=== PATIENT | male | born 1965 | race Caucasian/White ===

== ENCOUNTER 2016-10-28 20:42 | Inpatient (IN) | payer BC ==
[~2016-10-28] VITALS: Ht 172.7 cm; Wt 83.2 kg
--- NOTE | 2016-10-28 23:03 | ED CLINICAL REPORT ---
Clinical Report - Physicians/Mid Levels [facility] [address] [place] [address] 10/28/2016 20:48 Patient: MELINA MCKEON Time Seen: 2104; upon arrival, initial patient contact, initial documentation, patient care assumed. Arrived- By private vehicle. Historian- patient. HISTORY OF PRESENT ILLNESS Chief Complaint: LOWER EXTREMITY PAIN and SWELLING. Flexion, movement to the right and left and not relieved by anything- worsened by standing, walking and flexion, movement to the right and left and not relieved by anything. Severity is described as being severe. The quality is noted to be "pain". No radiation. This started about 1 weeks ago and is still present and worsening. Symptoms located in the area of the left thigh, left knee, left leg, left foot and left ankle. The patient has had redness and swelling. He has had difficulty walking. No bladder dysfunction, bowel dysfunction, sensory loss or motor loss. Patient denies an injury. Similar symptoms previously: None. Recent medical care: Not recently seen/assessed. REVIEW OF SYSTEMS No chest pain, difficulty breathing, fever or skin rash. All systems otherwise negative, except as recorded above. PAST HISTORY See nurses notes. ( PROBLEMS: Hypertension. --20:56 Raymundo Judge, Luis.). SOCIAL HISTORY Former smoker. History of heavy drug use: methamphetamines. No alcohol use. No recent travel. Is a local resident. FAMILY HISTORY Negative. ADDITIONAL NOTES The nursing notes have been reviewed with agreement regarding the chief complaint, HPI, ROS, PMH and patient medications and allergies. PHYSICAL EXAM Vital Signs: 10/28/2016 20:55 BP: 179/99. HR: 101. RR: 18. O2 saturation: 99%. Temp: 98.6 F. Have been reviewed as abnormal and appear to be correct. Hypertensive. Tachycardic. Respiratory rate normal. Temperature normal. Oxygen saturation normal. Appearance: Alert. Oriented X3. No acute distress. Eyes: Pupils equal, round and reactive to light. Eyes normal inspection. Neck: Normal inspection. Neck supple. CVS: Normal heart rate and rhythm. Heart sounds normal. Respiratory: No respiratory distress. Breath sounds normal. Abdomen: Soft and nontender. No organomegaly. Back: Normal inspection. No tenderness. ROM normal. Skin: Skin intact. Skin warm and dry. Normal skin color. Normal skin turgor. Extremities: Lower extremities do not exhibit normal ROM. Lower extremity edema present. (entire L leg erythema, warm, swollen, only area not red was patella). Extremities otherwise negative. Gait: Abnormal gait. Gait not tested due to pain. Neuro: Oriented X 3. No motor deficit. No sensory deficit. LABS, X-RAYS, AND EKG Lower Extremity Sonography: Negative study. verbal report from [employer] musa, no dvt. Interpretation time: 22:45. Laboratory Tests: CBC w Diff: (LOW: 10/28/2016 21:14) ( MsgRcvd 10/28/2016 21:29) Final results Test Result Flag Units (Reference) WHITE BLOOD COUNT 6.9 K/uL (4.5-11.5) RED BLOOD COUNT 4.64 M/uL (4.50-5.90) HEMOGLOBIN 14.1 gm/dL (13.5-17.5) HEMATOCRIT 41.4 % (41.0-53.0) MEAN CELL VOLUME 89 fL (80-100) MEAN CORPUSCULAR HGB 30 pg (26-34) MEAN CORPUSCULAR HGB CONC 34 g/dL (31-37) RED CELL DISTRIBUTION WIDTH 14.7 % (11.6-14.8) PLATELET COUNT 325 K/uL (150-400) NEUTROPHIL % 59.9 % (50-75) LYMPH % 23.3 L % (25-40) MONO % 6.9 % (3-14) EOSINOPHIL % 8.3 H % (0-4) BASOPHIL % 1.6 % (0-2) CMP: (LOW: 10/28/2016 21:14) ( MsgRcvd 10/28/2016 21:42) Final results Test Result Flag Units (Reference) GLUCOSE 89 mg/dL (70-110) BUN 11 mg/dL (7-18) CREATININE 1.0 mg/dL (0.6-1.3) Estimated GFR >60 mL/min Estimated GFR- >60 mL/min Note: Persistent reduction over 3 months in eGFR<60 mL/min/1.73 m2 defines CKD. Patients with eGFR values>=60 mL/min/1.73 m2 may also have CKD if evidence ofpersistent proteinuria. Additional information may be foundat www.kidney.org. SODIUM 140 mmol/L (136-145) POTASSIUM 4.2 mmol/L (3.5-5.1) CHLORIDE 103 mmol/L (98-107) CARBON DIOXIDE 32 mmol/L (21-32) CALCIUM 8.6 mg/dL (8.5-10.1) TOTAL PROTEIN 8.4 H g/dL (6.4-8.2) ALBUMIN 3.6 g/dL (3.3-5.0) BILIRUBIN, TOTAL 0.3 mg/dL (0.0-1.0) ALKALINE PHOSPHATASE 121 H U/L (46-116) AST (SGOT) 35 U/L (15-37) ALT (SGPT) 32 U/L (12-78) . PROGRESS AND PROCEDURES Course of Care: 22:40 10/28/16. US here. Discussed case with on-call health care provider, (23:[address] Paz). Reviewed test results. Agreed upon treatment plan and decision to admit. Health care provider will see patient in hospital. Patient counseled in person regarding the patient's stable condition, test results, diagnosis and need for admission. 2250. Differential Diagnosis: Other possible considerations: dvt, cellulitis, abscess, lymphedema, substance abuse. Above considerations are based on history, physical exam and laboratory data. Differential diagnosis was discussed with patient. Disposition: Admitted to Acute Care. 23:01. Condition: good and stable. CLINICAL IMPRESSION Cellulitis of the left thigh, left lower leg, left ankle and left foot. No foreign body present. (Electronically signed by Tammy Lund A.R.N.P. 10/30/2016 13:03)
--- NOTE | 2016-10-28 23:03 | ED ORDER SUMMARY ---
..... Patient: MELINA MCKEON OrderSheet [facility] VisitID: [id number] [address] [place] [address] 51y, M Registration Date/Time: 10/28/2016 ORDER SHEET Weight: 90.7 kg (stated) Allergies: NKDA GENERAL ORDERS: US Venous Left Urgent (21:17 10/28/2016 HBivens A.R.N.P.) (Ack 21:20 [facility]) (23:11 [place]) CBC w Diff Urgent (21:17 10/28/2016 HBivens A.R.N.P.) ([facility]ck 21:[facility] CMP Urgent (21:17 10/28/2016 HBivens A.R.N.P.) (Ack 21:20 [facility] Lactate, Serum Urgent (22:46 10/28/2016 HBivens A.R.N.P.) (Ack 23:03 [facility]) PCT (Procalcitonin) Urgent (22:46 10/28/2016 HBivens A.R.N.P.) (Ack 23:03 [facility]) Blood Culture (No) (N/A) Urgent (23:10 10/28/2016 HBivens A.R.N.P.) (Ack 23:19 [facility]) MEDICATION ORDERS: IV FLUIDS: IV Saline Lock (21:17 10/28/2016 HBivens A.R.N.P.) (21:20 DBeyer R.N.) Vancomycin IV 1 gm/200mL (NOW) (22:46 10/28/2016 HBivens A.R.N.P.) (23:42 DBeyer R.N.) ORDER SHEET NOTES: [Electronically signed by Raymundo Judge R.N. (00:44 10/29/2016)] [Electronically signed by Tammy Lund.R.N.P. (13:03 10/30/2016)] [Electronically locked/signed by Raymundo Judge R.N. (00:44 10/29/2016)]
--- NOTE | 2016-10-28 23:03 | ED NURSING NOTES ---
Clinical Report - Nurses [facility] [address] [place] [place] [address] 10/28/2016 20:48 Patient: MELINA MCKEON TRIAGE Triage time 20:55 Oct 28 2016. Acuity: LEVEL 3. Chief Complaint: SKIN PROBLEM and . leg swelling. --20:58 Raymundo Judge R.N. 20:55 10/28/16. BP: 179/99. HR: 101. RR: 18. O2 saturation: 99%. Temp: 98.6 F. Pain level now 8/10. --20:58 Raymundo Jduge R.N. Weight: 90.7 kg stated. Height/Length: 68 inches. BMI: 30.4. --20:57 Raymundo Judge R.N. Medications None. --20:56 Raymundo Judge R.N. Allergies NKDA. --20:56 Raymundo Judge R.N. History Arrived by private vehicle. Onset. (1 weeks). 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 SOCIAL HX: Former smoker. History of drug use: methamphetamines. No alcohol use. --20:58 Raymundo Judge R.N. PROBLEMS: Hypertension. --20:56 Raymundo Judge R.N. Interventions ID band on patient. To treatment room. --20:58 Raymundo Judge R.N. PHYSICAL ASSESSMENT GENERAL / NEURO / PSYCH: Alert. The patient does not appear to be in acute distress. Oriented X 4. HEENT: Pupils equal, round and reactive to light. Mucous membranes are pink. SKIN: Skin is dry. Skin tenderness present- LLE. Swelling present- LLE. Increased warmth present- LLE. --20:59 Raymundo Judge R.N. NURSING PROGRESS NOTES Pulse oximeter placed on patient. Patient gowned. --20:59 Raymundo Judge R.N. Call light placed in reach. Side rails up x 1. Bed placed in lowest position. --20:59 Raymundo Judge R.N. 21:20 10/28/2016 Site #1 started via IV in the right antecubital space with an 20g angiocath, with aseptic technique and good blood return; one attempt. Blood drawn: rainbow set. Labeled in the presence of the patient and sent to the lab. Saline lock flushed with saline. --21:20 Raymundo Judge R.N. 23:02 10/28/16. BP: 156/91. HR: 85. O2 saturation: 97%. --23:03 Raymundo Judge R.N. 23:42 10/28/2016 Started 1 gm of Vancomycin IVPB in bag #1 200 mL; at 200 mL/hr over 1 hour(s) via site #1 via IV pump. Allergies verified and confirmed 5 rights. IV patency established. IV site checked: no pain, redness, or swelling. IV flushed thoroughly pre- and post-medication administration. --23:42 Raymundo Judge R.N. DISPOSITION / DISCHARGE No learning barriers present. Report was given to a nurse via a phone call. Report included patient's care, treatment, medications, reviewed medication reconcilliation, and condition (including any recent changes or anticipated changes). All questions were answered. Report was acknowledged. Patient's personal items include: shirt, pants, socks and shoes, 00:27 Oct 29 2016; items were given to the patient and transported with the patient. --00:27 Raymundo Judge R.N. 00:32 10/29/16. BP: 160/90. HR: 91. RR: 18. O2 saturation: 100%. Temp: 98.8 F. Pain level now 0/10. --00:33 Raymundo Judge R.N. Departure time: 0033. --00:33 Ryamundo Judge R.N. Locked/Released at 10/29/2016 0:44 by Raymundo Judge R.N.
--- NOTE | 2016-10-28 23:03 | ED ORDER SUMMARY ---
..... Patient: MELINA MCKEON OrderSheet [facility] VisitID: [id number] [address] [place] [address] 51y, M Registration Date/Time: 10/28/2016 ORDER SHEET Weight: 90.7 kg (stated) Allergies: NKDA GENERAL ORDERS: US Venous Left Urgent (21:17 10/28/2016 HBivens A.R.N.P.) (Ack 21:20 [facility]) (23:11 [facility]) CBC w Diff Urgent (21:17 10/28/2016 HBivens A.R.N.P.) ([facility]ck 21:[facility] CMP Urgent (21:17 10/28/2016 HBivens A.R.N.P.) (Ack 21:20 [facility] Lactate, Serum Urgent (22:46 10/28/2016 HBivens A.R.N.P.) (Ack 23:03 [facility]) PCT (Procalcitonin) Urgent (22:46 10/28/2016 HBivens A.R.N.P.) (Ack 23:03 [facility]) Blood Culture (No) (N/A) Urgent (23:10 10/28/2016 HBivens A.R.N.P.) (Ack 23:19 [facility]) MEDICATION ORDERS: IV FLUIDS: IV Saline Lock (21:17 10/28/2016 HBivens A.R.N.P.) (21:20 DBeyer R.N.) Vancomycin IV 1 gm/200mL (NOW) (22:46 10/28/2016 HBivens A.R.N.P.) (23:42 DBeyer R.N.) ORDER SHEET NOTES: [Electronically signed by Raymundo Judge R.N. (00:44 10/29/2016)] [Electronically signed by Tammy Lund.R.N.P. (13:03 10/30/2016)] [Electronically locked/signed by Raymundo Judge R.N. (00:44 10/29/2016)]
--- NOTE | 2016-10-28 23:03 | ED NURSING NOTES ---
Clinical Report - Nurses [facility] [address] [place] [address] 10/28/2016 20:48 Patient: MELINA MCKEON TRIAGE Triage time 20:55 Oct 28 2016. Acuity: LEVEL 3. Chief Complaint: SKIN PROBLEM and . leg swelling. --20:58 Raymundo Judge R.N. 20:55 10/28/16. BP: 179/99. HR: 101. RR: 18. O2 saturation: 99%. Temp: 98.6 F. Pain level now 8/10. --20:58 Raymundo Judge R.N. Weight: 90.7 kg stated. Height/Length: 68 inches. BMI: 30.4. --20:57 Raymundo Judge R.N. Medications None. --20:56 Raymundo Judge R.N. Allergies NKDA. --20:56 Raymundo Judge R.N. History Arrived by private vehicle. Onset. (1 weeks). 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 SOCIAL HX: Former smoker. History of drug use: methamphetamines. No alcohol use. --20:58 Raymundo Judge R.N. PROBLEMS: Hypertension. --20:56 Raymundo Judge R.N. Interventions ID band on patient. To treatment room. --20:58 Raymundo Judge R.N. PHYSICAL ASSESSMENT GENERAL / NEURO / PSYCH: Alert. The patient does not appear to be in acute distress. Oriented X 4. HEENT: Pupils equal, round and reactive to light. Mucous membranes are pink. SKIN: Skin is dry. Skin tenderness present- LLE. Swelling present- LLE. Increased warmth present- LLE. --20:59 Raymundo Judge R.N. NURSING PROGRESS NOTES Pulse oximeter placed on patient. Patient gowned. --20:59 Raymundo Judge R.N. Call light placed in reach. Side rails up x 1. Bed placed in lowest position. --20:59 Raymundo Judge R.N. 21:20 10/28/2016 Site #1 started via IV in the right antecubital space with an 20g angiocath, with aseptic technique and good blood return; one attempt. Blood drawn: rainbow set. Labeled in the presence of the patient and sent to the lab. Saline lock flushed with saline. --21:20 Raymundo Judge R.N. 23:02 10/28/16. BP: 156/91. HR: 85. O2 saturation: 97%. --23:03 Raymundo Judge R.N. 23:42 10/28/2016 Started 1 gm of Vancomycin IVPB in bag #1 200 mL; at 200 mL/hr over 1 hour(s) via site #1 via IV pump. Allergies verified and confirmed 5 rights. IV patency established. IV site checked: no pain, redness, or swelling. IV flushed thoroughly pre- and post-medication administration. --23:42 Raymundo Judge R.N. DISPOSITION / DISCHARGE No learning barriers present. Report was given to a nurse via a phone call. Report included patient's care, treatment, medications, reviewed medication reconcilliation, and condition (including any recent changes or anticipated changes). All questions were answered. Report was acknowledged. Patient's personal items include: shirt, pants, socks and shoes, 00:27 Oct 29 2016; items were given to the patient and transported with the patient. --00:27 Raymundo Judge R.N. 00:32 10/29/16. BP: 160/90. HR: 91. RR: 18. O2 saturation: 100%. Temp: 98.8 F. Pain level now 0/10. --00:33 Raymundo Judge R.N. Departure time: 0033. --00:33 Raymundo Judge R.N. Locked/Released at 10/29/2016 0:44 by Raymundo Judge R.N.
--- NOTE | 2016-10-28 23:35 | DIAGNOSTIC IMAGING REPORT ---
PROCEDURE: US VENOUS - LEFT EXT INDICATION: Left lower extremity edema and pain, initial encounter TECHNIQUE: Duplex sonography of the deep venous system in the left lower extremity was performed. Compression and augmentation techniques were used. COMPARISON: None. FINDINGS: Normal compression of the greater saphenous, common femoral, superficial femoral, popliteal, peroneal, and posterior tibial veins. Normal augmentation. There is no evidence of superficial or deep venous thrombosis. 3 cm left inguinal lymph node. IMPRESSION: 1. No evidence of a left lower extremity DVT 2. Left inguinal adenopathy
[2016-10-29 00:40] VITALS: BP 164/70
--- NOTE | 2016-10-29 01:20 | DIAGNOSTIC IMAGING REPORT ---
PROCEDURE: XR CHEST 1 VIEW INDICATION: Coarse lung sounds and rhonchi TECHNIQUE: Portable AP view (0105 hours). COMPARISON: Compared to chest x-ray on 09/23/2013 and 06/06/2010. FINDINGS: Allowing for suboptimal inspiration, lungs are clear. Heart and mediastinum are normal. Thorax is normal. IMPRESSION: 1. Negative chest.
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
[2016-10-29 07:13] VITALS: BP 174/95
--- NOTE | 2016-10-29 08:32 | Progress Note ---
Subjective General Note Date: October 29, 2016 Admission Date: October 28, 2016 Hospital Day: 2 PCP: Emmy Blanco PA-C Status: Inpatient Advanced Directive: FULL CODE Room: 209-B Subjective: The patient left AMA prior to being seen Patient requests: None Medications and Allergies Medications Current Medications Sig/Nieves Start time Last Medication Dose Route Stop Time Status Admin Clarify Med Order See Dose 1630 10/30 1530 AC Insts (1) IV Docusate Sodium 250 MG BID PRN 10/29 09 AC PO Enoxaparin Sodium 40 MG DAILY 10/29 09 AC SC Vancomycin HCl/ 200 ML Q8H 10/29 0800 AC Dextrose IV Ibuprofen 600 MG Q6H PRN 10/29 0400 AC PO Ketorolac 30 MG Q6H PRN 10/29 0400 AC 10/29 Tromethamine IV 0414 Acetaminophen See Dose Q4H PRN 10/29 0130 AC Insts (2) PO Clotrimazole See Dose BID 10/29 0130 AC 10/29 Insts (3) TOP 0315 Naloxone HCl 0.4 MG PRN PRN 10/29 0130 AC IV Ondansetron HCl 4 MG Q6H PRN 10/29 0130 AC PO Ondansetron HCl 4 MG Q6H PRN 10/29 0130 AC IV Albuterol Sulfate 2.5 MG Q4H PRN 10/29 0100 AC IN Albuterol/Ipratropium 3 ML Q6H PRN 10/29 0100 AC IN Dose Instructions: (1)Clarify Med Order: VANCOMYCIN TROUGH (2)Acetaminophen: 325 - 650 MG (3)Clotrimazole: APPLY TO AFFECTED AREA Allergies Coded Allergies: No Known Drug Allergy (05/21/10) Physical Exam Vital Signs / I&Os Vital Signs Date Time Temp Pulse Resp B/P Pulse O2 O2 Flow FiO2 Ox Delivery Rate 10/29 0713 98.6 90 16 174/95 96 Room Air 0.0 10/29 004 98.2 99 16 164/70 95 Room Air 0.0 LAB Results Laboratory Tests 10/28 10/28 10/28 8355 8350 2114 Chemistry Plasma Sodium (136 - 145 mmol/L) 140 Plasma Potassium (3.5 - 5.1 mmol/L) 4.2 Plasma Chloride (98 - 107 mmol/L) 103 CO2 (Enzymatic) (21 - 32 mmol/L) 32 BUN (7 - 18 mg/dL) 11 Creatinine (0.6 - 1.3 mg/dL) 1.0 Est GFR ( Amer) (mL/min) >60 Est GFR (Non-Af Amer) (mL/min) >60 Glucose (70 - 110 mg/dL) 89 Lactic Acid (0.4 - 2.0 mmol/L) 0.6 Plasma Calcium (8.5 - 10.1 mg/dL) 8.6 Plasma Magnesium (1.8 - 2.4 mg/dL) 2.5 Total Bilirubin (0.0 - 1.0 mg/dL) 0.3 AST (15 - 37 U/L) 35 ALT (12 - 78 U/L) 32 Alkaline Phosphatase (46 - 116 U/L) 121 Total Protein (6.4 - 8.2 g/dL) 8.4 Albumin (3.3 - 5.0 g/dL) 3.6 Procalcitonin (0 - 0.5 ng/mL) <0.5 Hematology WBC (4.5 - 11.5 K/uL) 6.9 RBC (4.50 - 5.90 M/uL) 4.64 Hgb (13.5 - 17.5 gm/dL) 14.1 Hct (41.0 - 53.0 %) 41.4 MCV (80 - 100 fL) 89 MCH (26 - 34 pg) 30 RDW (11.6 - 14.8 %) 14.7 Neut % (Auto) (50 - 75 %) 59.9 Lymph % (Auto) (25 - 40 %) 23.3 [place] % (Auto) (3 - 14 %) 6.9 Eos % (Auto) (0 - 4 %) 8.3 Baso % (Auto) (0 - 2 %) 1.6 Plt Count, EDTA (150 - 400 K/uL) 325 PUBS MCHC (31 - 37 g/dL) 34 Microbiology Date/Time Procedure - Status Source Growth 10/28 2335 Blood Culture - RECD BLOOD Assessment and Plan Problem List 1. Cellulitis of lower extremity Plan Patient left AMA prior to being seen Current status: [current status] Anticipated discharge date: [discharge date] Anticipated discharge placement: [Home] Patient care time: Time spent in chart review, patient interview, physical exam, CPOE, and care documentation: [ ] minutes Visit to patient today: [ ] Complexity of care: [ ] E&M Codes Rounding: Inpt-Moderate/03645
--- NOTE | 2016-10-30 13:20 | ED MED RECONCILIATION SUMMARY ---
Patient: MELINA MCKEON Medication Reconciliation Report [facility] VisitID: [id number] [address] [place] [address] 51y, M Registration Date/Time: 10/28/2016 Weight: 90.7 kg Height/Length: 68 in. BMI: 30.4 ALLERGIES: NKDA The patient's Home Medications are listed below: NONE. The source(s) of the original Home Medication information: Not obtained. The following Medications were given to the patient in the Emergency Department: Vancomycin [IVPB] IVPB bolus 0, then 1 gm 200 mL/hr, administered: 10/28/2016 11:42:00 PM The following Medications were prescribed to the patient: None.
--- NOTE | 2016-10-30 13:20 | ED MAR SUMMARY ---
..... Medication Administration Record [facility] [address] [place] [address] Patient: MELINA MCKEON Visit ID: [id number] 51y, M Weight: 90.7 kg Height/Length: 68 in BMI: 30.4 ALLERGIES: NKDA Start 23:42 10/28/2016 Raymundo Judge R.N. Medication Administered: VANCOMYCIN [IVPB], Dose: 1 gm IVPB over 1 hour(s), Rate: 200 mL/hr, Dispensed: 200 mL bag, Site: #1 right AC. Medication Ordered: Vancomycin IV 1 gm/200mL (NOW).
--- NOTE | 2016-10-30 13:20 | ED DISCHARGE INSTRUCTIONS ---
Patient: MELINA MCKEON General Instructions [facility] VisitID: [id number] [address] [place] [address] 51y, M Registration Date/Time: 10/28/2016 Cellulitis of the left thigh, left lower leg, left ankle and left foot. No foreign body present. (Electronically signed by Tammy Lund A.R.N.P. 10/30/2016 13:03)
--- NOTE | 2016-10-30 13:20 | ED MED RECONCILIATION SUMMARY ---
Patient: MELINA MCKEON Medication Reconciliation Report [facility] VisitID: [id number] [address] [place] [address] 51y, M Registration Date/Time: 10/28/2016 Weight: 90.7 kg Height/Length: 68 in. BMI: 30.4 ALLERGIES: NKDA The patient's Home Medications are listed below: NONE. The source(s) of the original Home Medication information: Not obtained. The following Medications were given to the patient in the Emergency Department: Vancomycin [IVPB] IVPB bolus 0, then 1 gm 200 mL/hr, administered: 10/28/2016 11:42:00 PM The following Medications were prescribed to the patient: None.
--- NOTE | 2016-10-30 13:20 | ED DISCHARGE INSTRUCTIONS ---
Patient: MELINA MCKEON General Instructions [facility] VisitID: [id number] [address] [place] [address] 51y, M Registration Date/Time: 10/28/2016 Cellulitis of the left thigh, left lower leg, left ankle and left foot. No foreign body present. (Electronically signed by Tammy Lund A.R.N.P. 10/30/2016 13:03)
--- NOTE | 2016-10-30 13:20 | ED MAR SUMMARY ---
..... Medication Administration Record [facility] [address] [place] [address] Patient: MELINA MCKEON Visit ID: [id number] 51y, M Weight: 90.7 kg Height/Length: 68 in BMI: 30.4 ALLERGIES: NKDA Start 23:42 10/28/2016 Raymundo Judge R.N. Medication Administered: VANCOMYCIN [IVPB], Dose: 1 gm IVPB over 1 hour(s), Rate: 200 mL/hr, Dispensed: 200 mL bag, Site: #1 right AC. Medication Ordered: Vancomycin IV 1 gm/200mL (NOW).
== END 2016-10-29 08:55 | disposition left against medical advice (07) | DRG 603 ==
LOC: ED SRH 20:42 → ACUTE2 SRH 23:14 → TRANS SRH 23:14 → ACUTE2 SRH 10-29 00:41
PROVIDERS: ADMIT Family Medicine
DX: L03.116 Cellulitis of left lower limb (principal); F10.21 Alcohol dependence, in remission; Z87.891 Personal history of nicotine dependence

== ENCOUNTER 2016-10-29 21:58 | Inpatient (IN) | payer BC ==
[~2016-10-29] VITALS: Ht 172.7 cm; Wt 80.5 kg
--- NOTE | 2016-10-29 23:27 | ED ORDER SUMMARY ---
..... Patient: MELINA MCKEON OrderSheet [facility] VisitID: [id number] [address] [place] [address] 51y, M Registration Date/Time: 10/29/2016 ORDER SHEET Weight: 95.2 kg (stated) Allergies: No Known Drug Allergy GENERAL ORDERS: CBC w Diff Urgent (22:23 10/29/2016 Rom DUGGAN) (22:42 JDeElena R.N.) CMP Urgent (22:10/29/2016 Rom DUGGAN) (22:42 JDeElena R.N.) UA-Culture if indicated Urgent (22:10/29/2016 Rom DUGGAN) (Ack 22:46 Sofia HAYDEN Watch Assembler) (23:01 JQuivey R.N.) Amylase Urgent (22:10/29/2016 Rom DUGGAN) (22:42 JDeElena R.N.) Lipase Urgent (22:10/29/2016 Rom DUGGAN) (22:42 JDeElena R.N.) Blood Culture (No) (N/A) Urgent (22:24 10/29/2016 Rom DUGGAN) (22:42 JDeElena R.N.) Lactate, Serum Urgent (22:24 10/29/2016 Rom DUGGAN) (22:42 JDeElena R.N.) MEDICATION ORDERS: IV FLUIDS: IV Saline Lock (22:23 10/29/2016 Rom DUGGAN) (Ack 22:30 JDeElena R.N.) (22:43 JDeElena R.N.) Vancomycin IV 1 gm/200mL (NOW) (23:27 10/29/2016 Rom DUGGAN) (Ack 23:30 JQuivey R.N.) (23:42 JQuivey R.N.) ORDER SHEET NOTES: [Electronically signed by Tommy Mix R.N. (01:10/30/2016)] [Electronically signed by Pedro Patino MD (07:48 10/31/2016)] [Electronically locked/signed by Tommy Mix R.N. (:10/30/2016)]
--- NOTE | 2016-10-29 23:27 | ED NURSING NOTES ---
Clinical Report - Nurses [facility] [address] [place] [address] 10/29/2016 21:58 Patient: MELINA MCKEON TRIAGE Triage time 22:11. Acuity: LEVEL 3. Chief Complaint: LEFT LOWER EXTREMITY PAIN, SWELLING and REDNESS. 22:18. Alert. SEPSIS SCREEN: Sepsis Screen: negative. Infection suspected/documented. --22:18 Tommy Mix R.N. 22:11 10/29/16. BP: 172/96. HR: 104. RR: 16. O2 saturation: 99%. Temp: 98.1 F (oral). Pain level now: 12/18. --22:18 Tommy Mix R.N. Weight: 95.2 kg stated. Height/Length: 68 inches Per Patient. BMI: 31.9. --22:16 Tommy Mix R.N. Medications None. --22:15 Tommy Mix R.N. Medication/allergy information source: the patient. --22:18 Tommy Mix R.N. Allergies No Known Drug Allergy. --22:15 Tommy Mix R.N. History Arrived by private vehicle. Historian: patient. Unaccompanied. Primary physician (Francis). No injury occurred. This occurred (1 weeks ago). ( Patient reports the leg is better, wants to have it checked). 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 PAST MEDICAL HX: Tetanus status: up-to-date. Immunizations: up-to-date. SOCIAL HX: Former smoker, end date 2010. No alcohol use or drug use. No infectious disease exposure. ABUSE ASSESSMENT: No report of abuse. FALL RISK ASSESSMENT: Fall risk assessment completed. No fall risk identified. NUTRITIONAL RISK ASSESSMENT: The nutritional risk assessment revealed no deficiencies. FUNCTIONAL ASSESSMENT: Functional assessment: no impairments noted. LEARNING NEEDS ASSESSMENT: The learning needs assessment revealed no barriers. SKIN INTEGRITY ASSESSMENT: Skin integrity risk assessment completed. No skin integrity risk identified. --22:18 Tommy Mix R.N. ( Patient reports leaving AMA after being admitted). --22:19 Tommy Mix R.N. PROBLEMS: Cellulitis. Drug Poisoning. Substance Abuse. Hypertension. --22:17 Tommy Mix R.N. ADDITIONAL SURGERIES: Left Arm fx repair . Right collarr bone fx repair. Right leg fracture repair . --22:17 Tommy Mix R.N. Interventions ID band on patient. To treatment room. --22:18 Tommy Mix R.N. PHYSICAL ASSESSMENT 22:14. Ambulatory to room. Patient gowned. GENERAL / NEURO / PSYCH: Oriented X 4. Alert. EXTREMITIES: Neuro-vascular status intact to the extremity. Left thigh: swelling and erythema. Left leg: swelling and erythema. Left ankle: swelling and erythema. SKIN: Skin intact. Skin is warm and dry. --22:37 Tommy Mix R.N. NURSING PROGRESS NOTES 22:15. Two patient identifiers checked. Call light placed in reach. Bed placed in lowest position. Brakes of bed on. --22:37 Tommy Mix R.N. 22:43 10/29/2016 Site #1 started via IV in the right forearm with an 20g angiocath, with aseptic technique and good blood return; one attempt. Blood drawn: rainbow set and cultures x2. Labeled in the presence of the patient and sent to the lab. Saline lock flushed with 10 mL saline (2nd set of BC drawn (1st set yesterday). Pt has received a vancomycin dose yesterday in the ER. Lab notified.). --22:43 Hiram Snow R.N. 23:00. Patient ID band checked for patient name and birthdate: patient confirmed. Clean catch urine collected with return of radhika-colored clear urine; sample sent to lab for urinalysis. Specimen labeled in the presence of the patient. --23:01 Tommy Mix R.N. 23:42 10/29/2016 Started 1 gm of Vancomycin IVPB in bag #1 250 mL; at 250 mL/hr over 1 hour(s) via site #1 via IV pump. Allergies verified and confirmed 5 rights. IV patency established. IV site checked: no pain, redness, or swelling. IV flushed thoroughly pre- and post-medication administration. --23:42 Tommy Mix R.N. 23:42 10/29/16. BP: 160/84. HR: 92. RR: 15. O2 saturation: 96% on room air. Pain level now: 12/18. --23:43 Tommy Mix R.N. The patient is calm and resting quietly. GENERAL / NEURO / PSYCH: Alert. Oriented X 4. RESPIRATORY: No respiratory distress. SKIN: Skin is warm and dry. --23:43 Tommy Mix R.N. 00:31 10/30/2016 Vancomycin IVPB Continued: upon admission at the rate of 250 mL/hr. 50 mL remaining bag #1. IV patency established. IV site checked: no pain, redness, or swelling. IV flushed thoroughly. --00:36 Tommy Mix R.N. DISPOSITION / DISCHARGE Condition at departure: stable. No learning barriers present. Admitted to Acute Care. Patient's personal items include, Other belongings; items were placed in belongings bag and transported with the patient. He did not have glasses, contacts, dentures or a hearing aid. FALL RISK ASSESSMENT: Fall risk assessment completed. No fall risk identified. --00:22 Tommy Mix R.N. 00:21 10/30/16. BP: 138/76. HR: 94. RR: 15. O2 saturation: 99%. Pain level now: 12/18. --00:22 Tommy Mix R.N. Report was given via a phone call. Report included patient's care, treatment, medications, reviewed medication reconcilliation, and condition (including any recent changes or anticipated changes). All questions were answered. Report was acknowledged. (Swathi Baezaday care assistant). --00:27 Tommy Mix R.N. Departure time: 00:34. --00:35 Tommy Mix R.N. Locked/Released at 10/30/2016 1:11 by Tommy Mix R.N.
--- NOTE | 2016-10-29 23:27 | ED CLINICAL REPORT ---
Clinical Report - Physicians/Mid Levels [facility] [address] [place] [address] 10/29/2016 21:58 Patient: MELINA MCKEON Time Seen: 22:23. Arrived- By private vehicle. Historian- patient. HISTORY OF PRESENT ILLNESS Chief Complaint: LOWER EXTREMITY PAIN. Severity is described as being .it has become recently worse. The quality is noted to be aching and "pain". This started about 8 days ago and is still present and now worse. It was gradual in onset and has been constant. Symptoms located in the area of the left thigh, left leg and left foot. The patient has had redness and swelling. No sensory loss or motor loss. ( The patient was seen here yesterday and was diagnosed with left lower extremity cellulitis. He was admitted to the hospital and apparently received 2 doses of vancomycin total however he signed out AGAINST MEDICAL ADVICE. He returns now saying that the swelling and redness has worsened and he would like to be readmitted). Patient denies an injury. Recent medical care: The patient was seen recently at this facility. REVIEW OF SYSTEMS No chills, fever, sweats, chest pain or cough. No difficulty breathing, pedal edema, palpitations, abdominal pain or constipation. No diarrhea, nausea or vomiting. he reports that he had a left lower extremity venous Doppler done yesterday and that the study was negative for blood clots. All systems otherwise negative, except as recorded above. PAST HISTORY Problems: Cellulitis. Drug Poisoning. Substance Abuse. Hypertension. Additional Surgeries: Left Arm fx repair . Right collarr bone fx repair. Right leg fracture repair . Medications: None. Allergies: No Known Drug Allergy. SOCIAL HISTORY Smoker- current status unknown. History of drug use: methamphetamines. No alcohol use. FAMILY HISTORY Denies family medical history. ADDITIONAL NOTES The nursing notes have been reviewed. PHYSICAL EXAM Vital Signs: 10/29/2016 22:11 BP: 172/96. HR: 104. RR: 16. O2 saturation: 99%. Temp: 98.1 F. Pain level now: 410. Have been reviewed. Appearance: Alert. Eyes: Pupils equal, round and reactive to light. ENT: Pharynx normal. Neck: Neck supple. CVS: Normal heart rate and rhythm. Heart sounds normal. Respiratory: No respiratory distress. Breath sounds normal. Abdomen: Soft and nontender. No organomegaly. Back: Normal inspection. Extremities: Left thigh. Left leg. Left foot: severe erythema and moderate tenderness and swelling. Swelling, warmth, tenderness and erythema present in the left thigh, left leg and left foot. No drainage. No calf tenderness. LABS, X-RAYS, AND EKG Laboratory Tests: UA-Culture if indicated: (LOW: 10/29/2016 23:00) ( Mscvd 10/29/2016 23:13) Final results Test Result Flag Units (Reference) URINE COLOR YELLOW URINE APPEARANCE CLEAR URINE GLUCOSE NEGATIVE (NEGATIVE) URINE BILIRUBIN NEGATIVE (NEGATIVE) URINE KETONE NEGATIVE (NEGATIVE) URINE SPECIFIC GRAVITY >= 1.030 (1.010-1.030) URINE PH 5.5 (5.0-8.0) URINE PROTEIN NEGATIVE (NEGATIVE) URINE UROBILINOGEN 1.0 EU/dL (0.2-1.0) URINE NITRITE NEGATIVE (NEGATIVE) URINE BLOOD 2+ (NEGATIVE) URINE LEUK ESTERASE NEGATIVE (NEGATIVE) URINE RBC 3-5 rbc/hpf (0-1) URINE WBC 0-1 wbc/hpf (0-1) URINE EPITHELIAL CELLS 0-1 EPI/hpf (0-5) URINE BACTERIA NONE SEEN (NONE SEEN) URINE COMMENT CULT NOT INDICATED URINE CULTURES ARE SET-UP BASED ON THE FOLLOWING CRITERIA:POSITIVE NITRITEPOSITIVE LEUKOCYTE ESTERASEGREATER THAN 10 WHITE BLOOD CELLSMODERATE (2+) OR GREATER BACTERIA CBC w Diff: (LOW: 10/29/2016 22:24) ( [facility] [place] 22[facility]55) Final results Test Result Flag Units (Reference) WHITE BLOOD COUNT 6.8 K/uL (4.5-11.5) RED BLOOD COUNT 4.14 L M/uL (4.50-5.90) HEMOGLOBIN 12.1 L gm/dL (13.5-17.5) HEMATOCRIT 36.8 L % (41.0-53.0) MEAN CELL VOLUME 89 fL (80-100) MEAN CORPUSCULAR HGB 29 pg (26-34) MEAN CORPUSCULAR HGB CONC 33 g/dL (31-37) RED CELL DISTRIBUTION WIDTH 14.0 % (11.6-14.8) PLATELET COUNT 321 K/uL (150-400) LYMPH % 30.6 % (25-40) MONO % 6.2 % (3-14) GRANULOCYTE % 63.2 Lactate, Serum: (LOW: 10/29/2016 22:24) ( MsgRcvd 10/29/2016 23:19) Final results Test Result Flag Units (Reference) LACTIC ACID 1.4 mmol/L (0.4-2.0) CMP: (LOW: 10/29/2016 22:24) ( MsgRcvd 10/29/2016 23:13) Final results Test Result Flag Units (Reference) GLUCOSE 92 mg/dL (70-110) BUN 15 mg/dL (7-18) CREATININE 1.1 mg/dL (0.6-1.3) Estimated GFR >60 mL/min Estimated GFR- >60 mL/min Note: Persistent reduction over 3 months in eGFR<60 mL/min/1.73 m2 defines CKD. Patients with eGFR values>=60 mL/min/1.73 m2 may also have CKD if evidence ofpersistent proteinuria. Additional information may be foundat www.kidney.org. SODIUM 140 mmol/L (136-145) POTASSIUM 3.7 mmol/L (3.5-5.1) CHLORIDE 103 mmol/L (98-107) CARBON DIOXIDE 29 mmol/L (21-32) CALCIUM 8.2 L mg/dL (8.5-10.1) TOTAL PROTEIN 8.2 g/dL (6.4-8.2) ALBUMIN 3.2 L g/dL (3.3-5.0) BILIRUBIN, TOTAL 0.3 mg/dL (0.0-1.0) ALKALINE PHOSPHATASE 110 U/L (46-116) AST (SGOT) 29 U/L (15-37) ALT (SGPT) 26 U/L (12-78) LIPASE 61 L U/L (73-393) AMYLASE 32 U/L (25-115) . PROGRESS AND PROCEDURES Discussed case with hospitalist, (Megan - he saw the patient in the ER). Reviewed test results and need for additional work-up. Agreed upon treatment plan and decision to admit. Patient/family counseled. Old medical records reviewed. Disposition: Admitted. CLINICAL IMPRESSION Cellulitis of the left thigh and left lower leg. (Electronically signed by Pedro Patino MD 10/31/2016 7:48)
--- NOTE | 2016-10-29 23:27 | ED NURSING NOTES ---
Clinical Report - Nurses [facility] [address] [place] [address] 10/29/2016 21:58 Patient: MELINA MCKEON TRIAGE Triage time 22:11. Acuity: LEVEL 3. Chief Complaint: LEFT LOWER EXTREMITY PAIN, SWELLING and REDNESS. 22:18. Alert. SEPSIS SCREEN: Sepsis Screen: negative. Infection suspected/documented. --22:18 Tommy Mix R.N. 22:11 10/29/16. BP: 172/96. HR: 104. RR: 16. O2 saturation: 99%. Temp: 98.1 F (oral). Pain level now: 12/18. --22:18 Tommy Mix R.N. Weight: 95.2 kg stated. Height/Length: 68 inches Per Patient. BMI: 31.9. --22:16 Tommy Mix R.N. Medications None. --22:15 Tommy Mix R.N. Medication/allergy information source: the patient. --22:18 Tommy Mix R.N. Allergies No Known Drug Allergy. --22:15 Tommy Mix R.N. History Arrived by private vehicle. Historian: patient. Unaccompanied. Primary physician (Francis). No injury occurred. This occurred (1 weeks ago). ( Patient reports the leg is better, wants to have it checked). 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 PAST MEDICAL HX: Tetanus status: up-to-date. Immunizations: up-to-date. SOCIAL HX: Former smoker, end date 2010. No alcohol use or drug use. No infectious disease exposure. ABUSE ASSESSMENT: No report of abuse. FALL RISK ASSESSMENT: Fall risk assessment completed. No fall risk identified. NUTRITIONAL RISK ASSESSMENT: The nutritional risk assessment revealed no deficiencies. FUNCTIONAL ASSESSMENT: Functional assessment: no impairments noted. LEARNING NEEDS ASSESSMENT: The learning needs assessment revealed no barriers. SKIN INTEGRITY ASSESSMENT: Skin integrity risk assessment completed. No skin integrity risk identified. --22:18 Tommy Mix R.N. ( Patient reports leaving AMA after being admitted). --22:19 Tommy Mix R.N. PROBLEMS: Cellulitis. Drug Poisoning. Substance Abuse. Hypertension. --22:17 Tommy Mix R.N. ADDITIONAL SURGERIES: Left Arm fx repair . Right collarr bone fx repair. Right leg fracture repair . --22:17 Tommy Mix R.N. Interventions ID band on patient. To treatment room. --22:18 Tommy Mix R.N. PHYSICAL ASSESSMENT 22:14. Ambulatory to room. Patient gowned. GENERAL / NEURO / PSYCH: Oriented X 4. Alert. EXTREMITIES: Neuro-vascular status intact to the extremity. Left thigh: swelling and erythema. Left leg: swelling and erythema. Left ankle: swelling and erythema. SKIN: Skin intact. Skin is warm and dry. --22:37 Tommy Mix R.N. NURSING PROGRESS NOTES 22:15. Two patient identifiers checked. Call light placed in reach. Bed placed in lowest position. Brakes of bed on. --22:37 Tommy Mix R.N. 22:43 10/29/2016 Site #1 started via IV in the right forearm with an 20g angiocath, with aseptic technique and good blood return; one attempt. Blood drawn: rainbow set and cultures x2. Labeled in the presence of the patient and sent to the lab. Saline lock flushed with 10 mL saline (2nd set of BC drawn (1st set yesterday). Pt has received a vancomycin dose yesterday in the ER. Lab notified.). --22:43 Hiram Snow R.N. 23:00. Patient ID band checked for patient name and birthdate: patient confirmed. Clean catch urine collected with return of radhika-colored clear urine; sample sent to lab for urinalysis. Specimen labeled in the presence of the patient. --23:01 Tommy Mix R.N. 23:42 10/29/2016 Started 1 gm of Vancomycin IVPB in bag #1 250 mL; at 250 mL/hr over 1 hour(s) via site #1 via IV pump. Allergies verified and confirmed 5 rights. IV patency established. IV site checked: no pain, redness, or swelling. IV flushed thoroughly pre- and post-medication administration. --23:42 Tommy Mix R.N. 23:42 10/29/16. BP: 160/84. HR: 92. RR: 15. O2 saturation: 96% on room air. Pain level now: 12/18. --23:43 Tommy Mix R.N. The patient is calm and resting quietly. GENERAL / NEURO / PSYCH: Alert. Oriented X 4. RESPIRATORY: No respiratory distress. SKIN: Skin is warm and dry. --23:43 Tommy Mix R.N. 00:31 10/30/2016 Vancomycin IVPB Continued: upon admission at the rate of 250 mL/hr. 50 mL remaining bag #1. IV patency established. IV site checked: no pain, redness, or swelling. IV flushed thoroughly. --00:36 Tommy Mix R.N. DISPOSITION / DISCHARGE Condition at departure: stable. No learning barriers present. Admitted to Acute Care. Patient's personal items include, Other belongings; items were placed in belongings bag and transported with the patient. He did not have glasses, contacts, dentures or a hearing aid. FALL RISK ASSESSMENT: Fall risk assessment completed. No fall risk identified. --00:22 Tommy Mix R.N. 00:21 10/30/16. BP: 138/76. HR: 94. RR: 15. O2 saturation: 99%. Pain level now: 12/18. --00:22 Tommy Mix R.N. Report was given via a phone call. Report included patient's care, treatment, medications, reviewed medication reconcilliation, and condition (including any recent changes or anticipated changes). All questions were answered. Report was acknowledged. (Swathi Baezachronic care nurse). --00:27 Tommy Mix R.N. Departure time: 00:34. --00:35 Tommy Mix R.N. Locked/Released at 10/30/2016 1:11 by Tommy Mix R.N.
--- NOTE | 2016-10-29 23:27 | ED ORDER SUMMARY ---
..... Patient: MELINA MCKEON OrderSheet [facility] VisitID: [id number] [address] [place] [address] 51y, M Registration Date/Time: 10/29/2016 ORDER SHEET Weight: 95.2 kg (stated) Allergies: No Known Drug Allergy GENERAL ORDERS: CBC w Diff Urgent (22:23 10/29/2016 Rom DUGGAN) (22:42 JDeElena R.N.) CMP Urgent (22:10/29/2016 Rom DUGGAN) (22:42 JDeElena R.N.) UA-Culture if indicated Urgent (22:10/29/2016 Rom DUGGAN) (Ack 22:46 Sofia HAYDEN Nursing Department Chairperson) (23:01 JQuivey R.N.) Amylase Urgent (22:10/29/2016 Rom DUGGAN) (22:42 JDeElena R.N.) Lipase Urgent (22:10/29/2016 Rom DUGGAN) (22:42 JDeElena R.N.) Blood Culture (No) (N/A) Urgent (22:24 10/29/2016 Rom DUGGAN) (22:42 JDeElena R.N.) Lactate, Serum Urgent (22:24 10/29/2016 Rom DUGGAN) (22:42 JDeElena R.N.) MEDICATION ORDERS: IV FLUIDS: IV Saline Lock (22:23 10/29/2016 Rom DUGGAN) (Ack 22:30 JDeElena R.N.) (22:43 JDeElena R.N.) Vancomycin IV 1 gm/200mL (NOW) (23:27 10/29/2016 Rom DUGGAN) (Ack 23:30 JQuivey R.N.) (23:42 JQuivey R.N.) ORDER SHEET NOTES: [Electronically signed by Tommy Mix R.N. (01:10/30/2016)] [Electronically signed by Pedro Patino MD (07:48 10/31/2016)] [Electronically locked/signed by Tommy Mix R.N. (:10/30/2016)]
[2016-10-30 00:47] VITALS: BP 147/88
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
--- NOTE | 2016-10-30 05:12 | NUR ---
Pt arrived to floor around 0100 via stretcher. Ambulated to room bed well. Pt left AMA this morning without apparent cause and returned this evening stating "stupid mistake". Spoke with PT about this and Pt divulged being heroin user of 3/4 gram daily, previously denied to all care takers. Injects in both deltoids. Denies injecting in affected leg. VSS, pain 4/10, IV fluids running and well tolerated. Pt states being a heavy drinker in the past and switched to heroin. Call light directions given, bed low and locked. Pt has slept all shift thus far. Wakes during medical assistant per diem but falls back asleep quickly. L leg is slightly swollen with erythema throughout, warm to touch but Pt tolerates assessment well. WCTM.
[2016-10-30 06:38] VITALS: BP 139/87
--- NOTE | 2016-10-30 08:44 | NUR ---
Pharmacy to dose Vancomycin for cellulitis. Total of 2 gm given overnight, last 1 gm at 0300. Calculate 1500 mg IV q12hrs for trough ~13. Pharmacy will follow. mary
--- NOTE | 2016-10-30 09:10 | NUR ---
PATIENT AMBULATORY IN ROOM. PULLED IV OUT WHILE GETTING TO BATHROOM INDEPENDENTLY. PATIENT SIGNED BEHAVIORAL AGREEMENT WITH THIS RN. BELONGINGS SECURED IN CLOSET WITH ZIP TIE. SEE SHIFT ASSESSMENT FOR FURTHER DETAILS.
[2016-10-30 09:43] VITALS: BP 138/76
[2016-10-30 14:30] VITALS: BP 155/93
--- NOTE | 2016-10-30 17:27 | Progress Note ---
Subjective General Note Date: October 30, 2016 Admission Date: October 29, 2016 Hospital Day: 2 Status: Inpatient Advanced Directive: FULL CODE Room: 201 Brief History: The patient is a 51-year-old white male with a significant past mental history of opiate dependence-heroin who presented to [facility] emergency department on the day of admission secondary to complaints of left lower leg swelling, redness, and pain. [facility] ER evaluation was consistent with cellulitis involving left leg. Secondary to the above, the patient was admitted by Jarrell Guzman M.D. for further evaluation and treatment. For other history present illness, past medical history, family history, social history, review of systems, and admission physical examination please see the patient's history and physical examination and ER visit note in the patient's medical record. Subjective: The patient states the leg redness has improved. There is persistent swelling but this has improved also. Pain is adequately controlled. Patient requests: None other than medications for narcotic withdrawal Medications and Allergies Medications Current Medications Sig/Nieves Start time Last Medication Dose Route Stop Time Status Admin Clarify Med Order See Dose 1230 10/31 1230 AC Insts (1) IV 10/31 1231 Celecoxib 200 MG BID 10/30 1500 AC 10/30 PO 1549 Methadone HCl 20 MG Q8HR 10/30 1500 AC 10/30 PO 1549 Vancomycin HCl 1,500 MG Q12H 10/30 1300 AC 10/30 Sodium Chloride 500 ML IV 1317 Clotrimazole See Dose BID 10/30 0900 AC 10/30 Insts (2) TOP 0857 Enoxaparin Sodium 40 MG DAILY 10/30 0900 AC 10/30 SC 0857 Lisinopril 10 MG DAILY 10/30 0900 AC 10/30 PO 0857 Albuterol/Ipratropium 3 ML RTTID 10/30 0800 AC 10/30 IN 1537 Ceftriaxone Sodium/ 50 ML Q24H 10/30 0200 AC 10/30 Dextrose IV 0300 Hydromorphone HCl 1 MG Q2H PRN 10/30 0200 AC IV Sodium Chloride 1,000 ML ASDIRECTED 10/29 2345 AC 10/30 IV 0108 Dose Instructions: (1)Clarify Med Order: VANCOMYCIN TROUGH (2)Clotrimazole: APPLY TO AFFECTED AREA--feet, chivo soles and between toes. Allergies Coded Allergies: No Known Drug Allergy (05/21/10) Physical Exam Vital Signs / I&Os Vital Signs Date Time Temp Pulse Resp B/P Pulse O2 O2 Flow FiO2 Ox Delivery Rate 10/30 1551 95 10/30 1430 98.1 92 17 155/93 100 Room Air 10/30 0943 99.0 94 18 138/76 96 Room Air 10/30 0929 95 10/30 0638 98.8 80 18 139/87 95 Room Air 10/30 0047 98.1 88 20 147/88 95 Room Air General Appearance Alert, Oriented X3, Cooperative, No acute distress Lungs Clear to auscultation Cardiovascular Regular rate and rhythm, Normal S1 and S2 Abdomen Normal bowel sounds, Soft Extremities No cyanosis, No clubbing, Left leg shows diffuse edema with mild erythema which appears much improved since admission Neurological Grossly normal Psych/Mental Status Mental status normal, Mood normal LAB Results Laboratory Tests 10/29 10/29 10/29 2300 2224 2224 Chemistry Plasma Sodium (136 - 145 mmol/L) 140 Plasma Potassium (3.5 - 5.1 mmol/L) 3.7 Plasma Chloride (98 - 107 mmol/L) 103 CO2 (Enzymatic) (21 - 32 mmol/L) 29 BUN (7 - 18 mg/dL) 15 Creatinine (0.6 - 1.3 mg/dL) 1.1 Est GFR ( Amer) (mL/min) >60 Est GFR (Non-Af Amer) (mL/min) >60 Glucose (70 - 110 mg/dL) 92 Lactic Acid (0.4 - 2.0 mmol/L) 1.4 Plasma Calcium (8.5 - 10.1 mg/dL) 8.2 Total Bilirubin (0.0 - 1.0 mg/dL) 0.3 AST (15 - 37 U/L) 29 ALT (12 - 78 U/L) 26 Alkaline Phosphatase (46 - 116 U/L) 110 Total Protein (6.4 - 8.2 g/dL) 8.2 Albumin (3.3 - 5.0 g/dL) 3.2 Amylase (25 - 115 U/L) 32 Lipase (73 - 393 U/L) 61 Hematology WBC (4.5 - 11.5 K/uL) 6.8 RBC (4.50 - 5.90 M/uL) 4.14 Hgb (13.5 - 17.5 gm/dL) 12.1 Hct (41.0 - 53.0 %) 36.8 MCV (80 - 100 fL) 89 MCH (26 - 34 pg) 29 RDW (11.6 - 14.8 %) 14.0 Gran % 63.2 Lymph % (Auto) (25 - 40 %) 30.6 [place] % (Auto) (3 - 14 %) 6.2 Plt Count, EDTA (150 - 400 K/uL) 321 PUBS MCHC (31 - 37 g/dL) 33 Urines Urine Color YELLOW Urine Appearance CLEAR Urine pH (5.0 - 8.0) 5.5 Ur Specific [place] (1.010 - 1.030) >= 1.030 Urine Protein (NEGATIVE) NEGATIVE Urine Ketones (NEGATIVE) NEGATIVE Urine Blood (NEGATIVE) 2+ Urine Nitrite (NEGATIVE) NEGATIVE Urine Bilirubin (NEGATIVE) NEGATIVE Urine Urobilinogen (0.2 - 1.0 EU/dL) 1.0 Ur Leukocyte Esterase (NEGATIVE) NEGATIVE Urine RBC (0 - 1 rbc/hpf) 3-5 Urine WBC (0 - 1 wbc/hpf) 0-1 Ur Epithelial Cells (0 - 5 EPI/hpf) 0-1 Urine Bacteria (NONE SEEN) NONE SEEN Urine Glucose (NEGATIVE) NEGATIVE Urine Comment CULT NOT INDICATED Microbiology Date/Time Procedure - Status Source Growth 10/30 219 Blood Culture - RECD BLOOD 10/29 2223 Blood Culture - RECD BLOOD Assessment and Plan Problem List 1. Illicit drug use Status Chronic Onset Date Unknown Plan -Patient with history of illicit drug use-heroin -1 g per day -Begin methadone 20 mg by mouth 3 times a day -Initiated enrollment [facility] -Patient wishes to enroll in drug treatment program post discharge 2. Cellulitis of lower extremity Plan -Status improved -Continue vancomycin -Recheck CBC, CRP, ESR in a.m. -Consider switch to oral medications in a.m. if continued improvement Current status: Fair, improved Anticipated discharge date: Anticipated discharge in 1-2 days with improved status Anticipated discharge placement: Home Patient care time: Time spent in chart review, patient interview, physical exam, CPOE, and care documentation: 25 minutes Visit to patient today: 1 Complexity of care: Moderate E&M Codes Rounding: Inpt-Moderate/87021
--- NOTE | 2016-10-30 18:17 | NUR ---
PATIENT IS ALERT AND ORIENTED, HE HAS NO C/O N/V OR SOB. NO C/O CHEST PAIN. LUNG SOUNDS CLEAR, VSS, BOWEL TONES PRESENT ALL QUARDRANTS. BEEN MONITORING LEGS FOR FURTHER INCREASE S/S OF INFECTION. LEFT LEG IS A LITTLE SWOLLEN, PATIENT COMPLAINS OF PAIN IN LEFT LEG ONLY, IT IS RED ON LOWER HALF. PEDAL PULSES PRESNET, CAP REFILL LESS THAN 3 SEC ON ALL EXTREMITIES. HAS SENSATION IN ALL EXTREMITIES. NO OTHER COMPLAINTS RIGHT NOW. PT RESTING IN BED WATCHING T.V.
[2016-10-30 18:34] VITALS: BP 157/78
--- NOTE | 2016-10-30 20:23 | NUR ---
NOTIFIED DR. PARISH REGARDING PATIENTS CRITICAL LAB VALUES.
--- NOTE | 2016-10-30 20:24 | NUR ---
GETTING LOVONOX INJECTION TO HELP PREVENT DVTS WHILE IN HOSPITAL.
[2016-10-30 22:33] VITALS: BP 144/84
[2016-10-31 02:37] VITALS: BP 137/84
--- NOTE | 2016-10-31 05:18 | NUR ---
Pt. is resting in bed at this time. Denies pain throughout the night. L leg is sl. more swollen than R leg. Pt. using urinal to void. IV fluids and abx. infused without issue. Pt. is cooperative and pleasant. LA NENATM.
[2016-10-31 06:53] VITALS: BP 122/77
--- NOTE | 2016-10-31 06:59 | Progress Note ---
Subjective General Note Date: October 31, 2016 Admission Date: October 29, 2016 Hospital Day: 3 PCP: None Status: Inpatient Advanced Directive: FULL CODE Room: 201 Brief History: The patient is a 51-year-old white male with a significant past mental history of opiate dependence-heroin who presented to [facility] emergency department on the day of admission secondary to complaints of left lower leg swelling, redness, and pain. [facility] ER evaluation was consistent with cellulitis involving left leg. Secondary to the above, the patient was admitted by Jarrell Guzman M.D. for further evaluation and treatment. For other history present illness, past medical history, family history, social history, review of systems, and admission physical examination please see the patient's history and physical examination and ER visit note in the patient's medical record. Subjective: Doing well. Ready for discharge Patient requests: None Medications and Allergies Medications Current Medications Sig/Nieves Start time Last Medication Dose Route Stop Time Status Admin Clarify Med Order See Dose 1230 10/31 1230 AC Insts (1) IV 10/31 1231 Celecoxib 200 MG BID 10/30 1500 AC 10/30 PO 2117 Methadone HCl 20 MG Q8HR 10/30 1500 AC 10/31 PO 0520 Vancomycin HCl 1,500 MG Q12H 10/30 1300 AC 10/31 Sodium Chloride 500 ML IV 0143 Clotrimazole See Dose BID 10/30 0900 AC 10/30 Insts (2) TOP 2111 Enoxaparin Sodium 40 MG DAILY 10/30 0900 AC 10/30 SC 0857 Lisinopril 10 MG DAILY 10/30 0900 AC 10/30 PO 0857 Albuterol/Ipratropium 3 ML RTTID 10/30 0800 AC 10/30 IN 2153 Ceftriaxone Sodium/ 50 ML Q24H 10/30 0200 AC 10/31 Dextrose IV 0359 Hydromorphone HCl 1 MG Q2H PRN 10/30 0200 AC IV Sodium Chloride 1,000 ML ASDIRECTED 10/29 2345 AC 10/30 IV 2053 Dose Instructions: (1)Clarify Med Order: VANCOMYCIN TROUGH (2)Clotrimazole: APPLY TO AFFECTED AREA--feet, chivo soles and between toes. Allergies Coded Allergies: No Known Drug Allergy (05/21/10) Physical Exam Vital Signs / I&Os Vital Signs Date Time Temp Pulse Resp B/P Pulse O2 O2 Flow FiO2 Ox Delivery Rate 10/31 0653 97.9 77 18 122/77 96 Room Air 10/31 0237 98.1 88 16 137/84 96 Room Air 10/30 2233 98.1 87 16 144/84 98 Room Air 10/30 1834 97.9 89 15 157/78 100 Room Air 10/30 1551 95 10/30 1430 98.1 92 17 155/93 100 Room Air 10/30 0943 99.0 94 18 138/76 96 Room Air 10/30 0929 95 I&O 10/31 0000 10/30 1600 10/30 0800 Intake Total 950 1980 Output Total 400 400 Balance 550 1980 -400 General Appearance Alert, Oriented X3, Cooperative, No acute distress Lungs Clear to auscultation Cardiovascular Regular rate and rhythm, Normal S1 and S2 Extremities No cyanosis, No clubbing, redness, swelling, pain much improved left lower leg. Neurological Grossly normal Psych/Mental Status Mental status normal, Mood normal LAB Results Laboratory Tests 10/31 0535 Chemistry C-Reactive Protein (0.0 - 0.9 mg/dL) 0.9 Hematology WBC (4.5 - 11.5 K/uL) 5.3 RBC (4.50 - 5.90 M/uL) 3.99 Hgb (13.5 - 17.5 gm/dL) 11.8 Hct (41.0 - 53.0 %) 35.4 MCV (80 - 100 fL) 89 MCH (26 - 34 pg) 30 RDW (11.6 - 14.8 %) 14.3 Neut % (Auto) (50 - 75 %) 38 Lymph % (Auto) (25 - 40 %) 38 [place] % (Auto) (3 - 14 %) 1 Eos % (Auto) (0 - 4 %) 9 Baso % (Auto) (0 - 2 %) 0 Band Neutrophils % (0 - 8 %) 14 Metamyelocytes % (0 - 1 %) 0 Myelocytes (0 - 1 %) 0 Other Cell Type 0 Plt Count, EDTA (150 - 400 K/uL) 290 Anisocytosis (manual) 1+ PUBS MCHC (31 - 37 g/dL) 33 Assessment and Plan Problem List 1. Cellulitis of lower extremity Plan -much improved -Discharged today -Bactrim DS 1 by mouth twice a day, clindamycin 300 mg by mouth 3 times a day -Follow up with PCP 2. HTN (hypertension) Status Chronic Onset Date Unknown Plan -well-controlled -Lisinopril 10 mg by mouth daily. 3. Illicit drug use Status Chronic Onset Date Unknown Plan -outpatient follow-up with [facility] -Methadone replacement therapy. Current status: Fair, improved Anticipated discharge date: Anticipated discharge this p.m. or in a.m. Anticipated discharge placement: Home Patient care time: Time spent in chart review, patient interview, physical exam, CPOE, and care documentation: Greater than 30 minutes Visit to patient today: 2 Complexity of care: Moderate E&M Codes Rounding: Inpt-Moderate/08346
--- NOTE | 2016-10-31 07:48 | ED MED RECONCILIATION SUMMARY ---
Patient: MELINA MCKEON Medication Reconciliation Report [facility] VisitID: [id number] [address] [place] [address] 51y, M Registration Date/Time: 10/29/2016 Weight: 95.2 kg Height/Length: 68 in. BMI: 31.9 ALLERGIES: No Known Drug Allergy The patient's Home Medications are listed below: NONE. The source(s) of the original Home Medication information: patient The following Medications were given to the patient in the Emergency Department: Vancomycin [IVPB] IVPB bolus 0, then 1 gm 250 mL/hr, administered: 10/29/2016 11:42:00 PM The following Medications were prescribed to the patient: None.
--- NOTE | 2016-10-31 07:48 | ED MED RECONCILIATION SUMMARY ---
Patient: MELINA MCKEON Medication Reconciliation Report [facility] VisitID: [id number] [address] [place] [address] 51y, M Registration Date/Time: 10/29/2016 Weight: 95.2 kg Height/Length: 68 in. BMI: 31.9 ALLERGIES: No Known Drug Allergy The patient's Home Medications are listed below: NONE. The source(s) of the original Home Medication information: patient The following Medications were given to the patient in the Emergency Department: Vancomycin [IVPB] IVPB bolus 0, then 1 gm 250 mL/hr, administered: 10/29/2016 11:42:00 PM The following Medications were prescribed to the patient: None.
--- NOTE | 2016-10-31 07:48 | ED MAR SUMMARY ---
..... Medication Administration Record [facility] [address] [place] [address] Patient: MELINA MCKEON Visit ID: [id number] 51y, M Weight: 95.2 kg Height/Length: 68 in BMI: 31.9 ALLERGIES: No Known Drug Allergy Start 23:42 10/29/2016 Tommy Mix RAdrienneN., Continued Upon Admission 00:31 10/30/2016 Tommy Mix R.N. Medication Administered: VANCOMYCIN [IVPB], Dose: 1 gm IVPB over 1 hour(s), Rate: 250 mL/hr, Dispensed: 250 mL bag, Site: #1 right forearm. Medication Ordered: Vancomycin IV 1 gm/200mL (NOW).
--- NOTE | 2016-10-31 07:48 | ED DISCHARGE INSTRUCTIONS ---
Patient: MELINA MCKEON General Instructions [facility] VisitID: [id number] [address] [place] [address] 51y, M Registration Date/Time: 10/29/2016 Cellulitis of the left thigh and left lower leg. (Electronically signed by Pedro Patino MD 10/31/2016 7:48)
--- NOTE | 2016-10-31 07:48 | ED MAR SUMMARY ---
..... Medication Administration Record [facility] [address] [place] [address] Patient: MELINA MCKEON Visit ID: [id number] 51y, M Weight: 95.2 kg Height/Length: 68 in BMI: 31.9 ALLERGIES: No Known Drug Allergy Start 23:42 10/29/2016 Tommy Mix RAdrienneN., Continued Upon Admission 00:31 10/30/2016 Tommy Mix R.N. Medication Administered: VANCOMYCIN [IVPB], Dose: 1 gm IVPB over 1 hour(s), Rate: 250 mL/hr, Dispensed: 250 mL bag, Site: #1 right forearm. Medication Ordered: Vancomycin IV 1 gm/200mL (NOW).
--- NOTE | 2016-10-31 07:48 | ED DISCHARGE INSTRUCTIONS ---
Patient: MELINA MCKEON General Instructions [facility] VisitID: [id number] [address] [place] [address] 51y, M Registration Date/Time: 10/29/2016 Cellulitis of the left thigh and left lower leg. (Electronically signed by Pedro Patino MD 10/31/2016 7:48)
--- NOTE | 2016-10-31 07:51 | NUR ---
PATIENT RESTING IN BED AND UP TO CHAIR FOR BREAKFAST. DENIES PAIN. IV INFUSING WNL. REDNESS DECREASING TO LLE. SEE SHIFT ASSESSMENT FOR FURTHER DETAILS.
--- NOTE | 2016-10-31 09:09 | NUR ---
PATIENT STATED IV CAME OUT THIS MORNING. HEMOSTASIS ACHIEVED AT SITE. NOTIFIED MD WHO STATED OK TO KEEP IV OUT FOR NOW.
[2016-10-31 10:36] VITALS: BP 132/86
[2016-10-31] MEDS ORDERED: METHADONE HCL10 MG PO (13:09)
[2016-10-31] MEDS ORDERED: MOTRIN IB200 MG PO (13:09)
[2016-10-31] MEDS ORDERED: LISINOPRIL10 MG PO (13:09)
--- NOTE | 2016-10-31 13:14 | Provider's Discharge Care Plan ---
Problem, Goal, Plan Problem List 1. Cellulitis of lower extremity Goals: Improve disease control, Prevent disease progress Instructions: Follow up as directed, Take meds as directed 2. Illicit drug use Goals: Improve disease control, Prevent disease progress Instructions: Follow up as directed, Take meds as directed, Enroll in treatment program with [facility]. 3. HTN (hypertension) Goals: Improve disease control, Prevent disease progress Instructions: Follow up as directed, Take meds as directed, Avoid processed foods, Low salt diet
[2016-10-31] MEDS ORDERED: CLINDAMYCIN HC300 MG PO (13:15)
[2016-10-31] MEDS ORDERED: BACTRIM DS1 TAB PO (13:15)
--- NOTE | 2016-10-31 13:18 | Discharge Summary ---
Discharge Summary Report Admit Date 10/29/16 Discharge Date 10/31/16 Admission Diagnosis 1. Cellulitis 2. Illicit drug use-heroin Discharge Diagnosis 1. Cellulitis 2. Illicit drug use-heroin Brief History The patient is a 51-year-old white male with a significant past mental history of opiate dependence-heroin who presented to [facility] emergency department on the day of admission secondary to complaints of left lower leg swelling, redness, and pain. [facility] ER evaluation was consistent with cellulitis involving left leg. Secondary to the above, the patient was admitted by Jarrell Guzman M.D. for further evaluation and treatment. For other history present illness, past medical history, family history, social history, review of systems, and admission physical examination please see the patient's history and physical examination and ER visit note in the patient's medical record. Hospital Course The following problems and their management were noted during the patient's hospitalization: 1. Cellulitis The patientWas admitted with findings of cellulitis left leg. This improved dramatically during the patient's hospital stay. He was afebrile. WBC within normal limits. Erythema and pain much improved. He was discharged on Bactrim DS 1 by mouth twice a day to complete a 10 day course of therapy. Outpatient follow-up with PCP 2. Illicit drug use-heroin The patient was treated with opiate replacement therapy with methadone. No significant withdrawal symptoms. The patient was enrolled in the methadone treatment program with the [facility]. He will follow-up with the [facility] for outpatient drug rehabilitation. General Appearance Alert, Oriented X3, Cooperative, No acute distress Lungs Clear to auscultation, Normal air movement Cardiovascular Regular Rate, Normal S1, Normal S2 Abdomen Normal bowel sounds, Soft, No tenderness Skin Cellulitis much improved. Minimal erythema left leg. No significant pain or warmth. Swelling stable. Neurological Grossly normal Psych/Mental Status Mental status NL, Mood NL Lab/Imaging Laboratory Tests 10/31 10/31 1230 0535 Chemistry C-Reactive Protein (0.0 - 0.9 mg/dL) 0.9 Hematology WBC (4.5 - 11.5 K/uL) 5.3 RBC (4.50 - 5.90 M/uL) 3.99 Hgb (13.5 - 17.5 gm/dL) 11.8 Hct (41.0 - 53.0 %) 35.4 MCV (80 - 100 fL) 89 MCH (26 - 34 pg) 30 RDW (11.6 - 14.8 %) 14.3 Neut % (Auto) (50 - 75 %) 38 Lymph % (Auto) (25 - 40 %) 38 [place] % (Auto) (3 - 14 %) 1 Eos % (Auto) (0 - 4 %) 9 Baso % (Auto) (0 - 2 %) 0 Band Neutrophils % (0 - 8 %) 14 Metamyelocytes % (0 - 1 %) 0 Myelocytes (0 - 1 %) 0 Other Cell Type 0 Plt Count, EDTA (150 - 400 K/uL) 290 Anisocytosis (manual) 1+ PUBS MCHC (31 - 37 g/dL) 33 Toxicology Vancomycin Trough Cancelled Discharge Instructions/Meds For other recommendations regarding discharge diet, activity, followup, and discharge medications please see the patient's discharge instructions. Discharge condition: Good, improved Greater than 30 min. was spent in the patient's discharge preparation including discharge interview and physical examination, progress note, discharge instructions, and discharge summary The patient was interviewed and examined on the day of discharge. E&M Codes Discharge: Inpt >30 min spent/[id number]
--- NOTE | 2016-10-31 13:18 | Discharge Summary ---
Discharge Summary Report Admit Date 10/29/16 Discharge Date 10/31/16 Admission Diagnosis 1. Cellulitis 2. Illicit drug use-heroin Discharge Diagnosis 1. Cellulitis 2. Illicit drug use-heroin Brief History The patient is a 51-year-old white male with a significant past mental history of opiate dependence-heroin who presented to [facility] emergency department on the day of admission secondary to complaints of left lower leg swelling, redness, and pain. [facility] ER evaluation was consistent with cellulitis involving left leg. Secondary to the above, the patient was admitted by Jarrell Guzman M.D. for further evaluation and treatment. For other history present illness, past medical history, family history, social history, review of systems, and admission physical examination please see the patient's history and physical examination and ER visit note in the patient's medical record. Hospital Course The following problems and their management were noted during the patient's hospitalization: 1. Cellulitis The patientWas admitted with findings of cellulitis left leg. This improved dramatically during the patient's hospital stay. He was afebrile. WBC within normal limits. Erythema and pain much improved. He was discharged on Bactrim DS 1 by mouth twice a day to complete a 10 day course of therapy. Outpatient follow-up with PCP 2. Illicit drug use-heroin The patient was treated with opiate replacement therapy with methadone. No significant withdrawal symptoms. The patient was enrolled in the methadone treatment program with the [facility]. He will follow-up with the [facility] for outpatient drug rehabilitation. General Appearance Alert, Oriented X3, Cooperative, No acute distress Lungs Clear to auscultation, Normal air movement Cardiovascular Regular Rate, Normal S1, Normal S2 Abdomen Normal bowel sounds, Soft, No tenderness Skin Cellulitis much improved. Minimal erythema left leg. No significant pain or warmth. Swelling stable. Neurological Grossly normal Psych/Mental Status Mental status NL, Mood NL Lab/Imaging Laboratory Tests 10/31 10/31 1230 0535 Chemistry C-Reactive Protein (0.0 - 0.9 mg/dL) 0.9 Hematology WBC (4.5 - 11.5 K/uL) 5.3 RBC (4.50 - 5.90 M/uL) 3.99 Hgb (13.5 - 17.5 gm/dL) 11.8 Hct (41.0 - 53.0 %) 35.4 MCV (80 - 100 fL) 89 MCH (26 - 34 pg) 30 RDW (11.6 - 14.8 %) 14.3 Neut % (Auto) (50 - 75 %) 38 Lymph % (Auto) (25 - 40 %) 38 [place] % (Auto) (3 - 14 %) 1 Eos % (Auto) (0 - 4 %) 9 Baso % (Auto) (0 - 2 %) 0 Band Neutrophils % (0 - 8 %) 14 Metamyelocytes % (0 - 1 %) 0 Myelocytes (0 - 1 %) 0 Other Cell Type 0 Plt Count, EDTA (150 - 400 K/uL) 290 Anisocytosis (manual) 1+ PUBS MCHC (31 - 37 g/dL) 33 Toxicology Vancomycin Trough Cancelled Discharge Instructions/Meds For other recommendations regarding discharge diet, activity, followup, and discharge medications please see the patient's discharge instructions. Discharge condition: Good, improved Greater than 30 min. was spent in the patient's discharge preparation including discharge interview and physical examination, progress note, discharge instructions, and discharge summary The patient was interviewed and examined on the day of discharge. E&M Codes Discharge: Inpt >30 min spent/[id number]
--- NOTE | 2016-10-31 15:17 | NUR ---
DC INSTRUCTIONS GIVEN TO PATIENT AND ALL QUESTIONS ANSWERED. PRESCRIPTIONS GIVEN TO PATIENT. PATIENT ESCORTED TO LOBBY BY THIS RN, PATIENT WOULD LIKE TO WAIT FOR RIDE THERE.
== END 2016-10-31 15:15 | disposition home or self-care (01) | DRG 603 ==
LOC: ED SRH 21:58 → ACUTE2 SRH 23:32 → TRANS SRH 23:32 → ACUTE2 SRH 10-30 00:34
PROVIDERS: ADMIT Family Medicine
DX: L03.116 Cellulitis of left lower limb (principal); F11.20 Opioid dependence, uncomplicated; I10 Essential (primary) hypertension

== ENCOUNTER 2016-12-13 01:31 | Emergency (ER) | payer BC ==
[~2016-12-13 01:31] MED LIST: BACTRIM DS1 TAB PO; CLINDAMYCIN HC300 MG PO; LISINOPRIL10 MG PO; METHADONE HCL10 MG PO; MOTRIN IB200 MG PO
--- NOTE | 2016-12-13 03:21 | ED ORDER SUMMARY ---
..... Patient: MELINA MCKEON OrderSheet [facility] VisitID: [id number] [place] [address] 51y, M Registration Date/Time: 12/13/2016 ORDER SHEET Weight: 90.7 kg (stated) Allergies: No Known Drug Allergy GENERAL ORDERS: CBC w Diff Urgent (02:28 12/13/2016 DDavis R.N. per protocol) (2:29 DDavis R.N.) CMP Urgent (02:12/13/2016 DDavis R.N. per protocol) (2:29 DDavis R.N.) UA-Culture if indicated Urgent (02:12/13/2016 DDavis R.N. per protocol) (2:29 DDavis R.N.) MEDICATION ORDERS: IV FLUIDS: IV Saline Lock (02:12/13/2016 DDavis R.N. per protocol) (2:28 DDavis R.N.) IV NS : initial bolus 1000 mL (1000 mL/hr), then none - (NOW) (02:32 12/13/2016 Kristen DUGGAN) (2:33 DDavis R.N.) Ondansetron IV 4 mg (NOW) (02:55 12/13/2016 DDavis R.N. verbal order read back to Kristen DUGGAN) (Ack 2:57 RCollier R.N.) (2:59 JQuivehope R.N.) ORDER SHEET NOTES: [Electronically signed by Alyx Keller R.N. (03:31 12/13/2016)] [Electronically signed by Sabrina Ha MD (19:00 12/22/2016)] [Electronically locked/signed by Alyx Keller R.N. (03:31 12/13/2016)]
--- NOTE | 2016-12-13 03:21 | ED NURSING NOTES ---
Clinical Report - Nurses [facility] [place] [address] 12/13/2016 1:30 Patient: MELINA MCKEON TRIAGE Triage time 01:42. Acuity: LEVEL 3. Chief Complaint: ABDOMINAL PAIN, NAUSEA and VOMITING. --01:48 Ray Oglesby R.N. 01:42 12/13/16. BP: 156/94. HR: 120. RR: 18. O2 saturation: 98% on room air. Temp: 98.9 F (oral). Pain level now: 0/10. Additional comments: intermittent abdominal pain. --01:48 Ray Oglesby R.N. Alert. --01:48 Ray Oglesby R.N. Weight: 90.7 kg stated. Height/Length: 68 inches Per Patient. BMI: 30.4. --01:43 Ray Oglesby R.N. Medications Ibuprofen Oral. --01:43 Ray Oglesby R.N. Lisinopril Oral. --01:43 Ray Oglesby R.N. Allergies No Known Drug Allergy. --01:43 Ray Oglesby R.N. History Arrived by private vehicle. Historian: patient. Unaccompanied. ( "a couple days" ago). SOCIAL HX: Former smoker. History of drug use: methamphetamines. ("30 days ago"). SELF HARM ASSESSMENT: A self harm assessment was performed. The patient answered "no" to the question "Have you recently felt down, depressed, or hopeless?", "Have you noticed less interest or pleasure in doing things?", "Do you have thoughts of harming or killing yourself?", "Are you here because you tried to hurt yourself?", "Have you ever tried to hurt yourself before today?" and "Have you recently had thoughts about harming or killing others?". FALL RISK ASSESSMENT: Fall risk assessment completed. No fall risk identified. FUNCTIONAL ASSESSMENT: Functional assessment: no impairments noted. LEARNING NEEDS ASSESSMENT: The learning needs assessment revealed no barriers. NUTRITIONAL RISK ASSESSMENT: The patient has recently had a decreased appetite. --01:48 Ray Oglesby R.N. PROBLEMS: Cellulitis. Drug Poisoning. Substance Abuse. Hypertension. --01:43 Ray Oglesby R.N. ADDITIONAL SURGERIES: Left Arm fx repair . Right collarr bone fx repair. Right leg fracture repair . --01:43 Ray Oglesby R.N. Interventions ID band on patient. To treatment room. --01:48 Ray Oglesby R.N. PHYSICAL ASSESSMENT Ambulatory to room. GENERAL / NEURO / PSYCH: Alert. Oriented X 4. HEENT: Mucous membranes are pink. RESPIRATORY: Respirations not labored. CVS: Capillary refill less than 2 seconds. GI / : Abdomen soft. Abdominal tenderness in the lower abdomen. ( last bm today). EXTREMITIES: Bilateral 3+ pitting edema of the lower extremities involving both ankles and both lower legs. SKIN: Skin is warm and dry. --01:49 Ray Oglesby R.N. NURSING PROGRESS NOTES Patient gowned. Head of bed elevated. Two patient identifiers checked. Call light placed in reach. Side rails up x 1. Bed placed in lowest position. Brakes of bed on. Patient ready for evaluation- chart flagged. Patient waiting for evaluation. --01:49 Ray Oglesby R.N. <<STRICKEN ENTRY-- 02:13 12/13/2016 Site #1 started via IV with an 20g angiocath, with aseptic technique; one attempt. Blood drawn: rainbow set. Labeled in the presence of the patient and sent to the lab. Saline lock flushed with 10 mL saline. --02:28 Ray Oglesby R.N. --END STRIKE>> Change to Details. --02:29 Ray Oglesby R.N. 02:13 12/13/2016 Site #1 started via IV in the left antecubital space with an 20g angiocath, with aseptic technique; two attempts. Blood drawn: rainbow set. Labeled in the presence of the patient and sent to the lab. Saline lock flushed with 10 mL saline. --02:29 Ray Oglesby R.N. <<STRICKEN ENTRY-- 02:33 12/13/2016 Started bag #1 1000 mL IV Fluids IV NS (Saline); at 1000 mL/hr over 1 hour(s) via site #1 --02:33 Ray Oglesby R.N. --END STRIKE>> Correction. --02:33 Ray Oglesby R.N. 02:33 12/13/2016 Started bag #1 1000 IV Fluids IV NS (Saline); at 1000 mL/hr over 1 hour(s) via site #1. Allergies verified and confirmed 5 rights. IV patency established. IV site checked: no pain, redness, or swelling. IV flushed thoroughly pre- and post-medication administration. Completed per protocol. --02:33 Ray Oglesby R.N. 02:59 12/13/2016 Ondansetron (Ondansetron HCl) IVP 4 mg given over 2 minute(s) via site #1. Allergies verified and confirmed 5 rights. IV patency established. IV site checked: no pain, redness, or swelling. IV flushed thoroughly pre- and post-medication administration. --02:59 Tommy Mix R.N. ( Doctor Sabrina currently with patient). --03:17 Ray Oglesby R.N. 03:29 12/13/2016 Site #1 removed upon discharge. Manual pressure and bandage applied. --03:29 Ray Oglesby R.N. 03:29 12/13/2016 IV Fluids IV NS Discontinued: bag #1 infused upon discharge. Total amount infused: 1000 mL. IV patency established. IV site checked: no pain, redness, or swelling. IV flushed thoroughly. --03:30 Ray Oglesby R.N. DISPOSITION / DISCHARGE Condition at departure: stable. No learning barriers present. Discharge instructions provided and reviewed with the patient. Reviewed medication(s) side effects, precautions, dosing and course information. Prescription(s) given to the patient. Patient verbalized understanding. Written instructions provided in Slovak. The patient was discharged home. He left the Emergency Department ambulatory and via private vehicle. Insurance Sales Representative driving. --03:31 Alyx Keller R.N. 03:30 12/13/16. BP: 129/73. HR: 109. RR: 15. O2 saturation: 96% on room air. Temp: deferred. Epps-Pitt pain scale: 2/10. --03:31 Alyx Keller R.N. Locked/Released at 12/13/2016 3:31 by Alyx Keller R.N.
--- NOTE | 2016-12-13 03:21 | ED ORDER SUMMARY ---
..... Patient: MELINA MCKEON OrderSheet [facility] VisitID: [id number] [place] [address] 51y, M Registration Date/Time: 12/13/2016 ORDER SHEET Weight: 90.7 kg (stated) Allergies: No Known Drug Allergy GENERAL ORDERS: CBC w Diff Urgent (02:28 12/13/2016 DDavis R.N. per protocol) (2:29 DDavis R.N.) CMP Urgent (02:12/13/2016 DDavis R.N. per protocol) (2:29 DDavis R.N.) UA-Culture if indicated Urgent (02:12/13/2016 DDavis R.N. per protocol) (2:29 DDavis R.N.) MEDICATION ORDERS: IV FLUIDS: IV Saline Lock (02:12/13/2016 DDavis R.N. per protocol) (2:28 DDavis R.N.) IV NS : initial bolus 1000 mL (1000 mL/hr), then none - (NOW) (02:32 12/13/2016 Kristen DUGGAN) (2:33 DDavis R.N.) Ondansetron IV 4 mg (NOW) (02:55 12/13/2016 DDavis R.N. verbal order read back to Kristen DUGGAN) (Ack 2:57 RCollier R.N.) (2:59 JQuivehope R.N.) ORDER SHEET NOTES: [Electronically signed by Alyx Keller R.N. (03:31 12/13/2016)] [Electronically signed by Sabrina Ha MD (19:00 12/22/2016)] [Electronically locked/signed by Alyx Keller R.N. (03:31 12/13/2016)]
--- NOTE | 2016-12-13 03:21 | ED CLINICAL REPORT ---
Clinical Report - Physicians/Mid Levels [facility] [address] [place] [address] 12/13/2016 1:30 Patient: MELINA MCKEON Time Seen: 02:30. Arrived- By private vehicle. Historian- patient. HISTORY OF PRESENT ILLNESS Chief Complaint: ABDOMINAL PAIN and VOMITING. At its maximum, severity described as moderate. When seen in the E.D., severity described as moderate. Modifying factors. Not worsened by anything. Not relieved by anything. It is described as cramping and it is described as located in the upper abdomen. This started about 2 days ago and is still present. The patient has had nausea, loss of appetite and vomiting. No diarrhea. Similar symptoms previously: Occasionally. Recent medical care: Not recently seen/assessed. REVIEW OF SYSTEMS No constipation, black stools, hematemesis, difficulty with urination or pain with urination. No urinary frequency, bloody stools, fever, headache or sore throat. No blurred vision, chest pain, difficulty breathing, cough or joint pain. No skin rash, chills or back pain. All systems otherwise negative, except as recorded above. PAST HISTORY Problems: Immunizations. Substance Abuse. Hypertension. Additional Surgeries: Left Arm fx repair . Right collarr bone fx repair. Right leg fracture repair . Medications: Lisinopril Oral. Ibuprofen Oral. Allergies: No Known Drug Allergy. SOCIAL HISTORY Former smoker. History of drug use: methamphetamines. No alcohol use. ADDITIONAL NOTES The nursing notes have been reviewed. PHYSICAL EXAM Vital Signs: 12/13/2016 01:42 BP: 156/94. HR: 120. RR: 18. O2 saturation: 98%. Temp: 98.9 F. Pain level now: 0/10. Have been reviewed. Appearance: Alert. Oriented X3. No acute distress. (Pt appears mildly uncomfortable.). Eyes: Pupils equal, round and reactive to light. Eyes normal inspection. ENT: Nose normal. Neck: Normal inspection. CVS: Normal heart rate and rhythm. Heart sounds normal. Pulses normal. Respiratory: No respiratory distress. Breath sounds normal. Abdomen: Soft and nontender. Back: Normal inspection. No CVA tenderness. Skin: Skin warm and dry. Normal skin color. No rash. Normal skin turgor. Extremities: Extremities exhibit normal ROM. No lower extremity edema. Neuro: Oriented X 3. No motor deficit. No sensory deficit. LABS, X-RAYS, AND EKG Laboratory Tests: UA-Culture if indicated: (LOW: 12/13/2016 02:10) ( [facility] 12/13/2016 02:47) Final results Test Result Flag Units (Reference) URINE COLOR OMER URINE APPEARANCE SL CLOUDY URINE GLUCOSE NEGATIVE (NEGATIVE) URINE BILIRUBIN 1+ (NEGATIVE) URINE BILIRUBIN ICTOTEST POSITIVE (NEGATIVE) URINE KETONE NEGATIVE (NEGATIVE) URINE SPECIFIC GRAVITY >= 1.030 (1.010-1.030) URINE PH 5.5 (5.0-8.0) URINE PROTEIN TRACE (NEGATIVE) URINE UROBILINOGEN 2.0 EU/dL (0.2-1.0) The urobilinogen reagent area may react with interferingsubstances known to react with Lubna's reagent such asp-aminosalicylic acid and sulfonamides. Atypical colorreactions may be obtained in the presence of highconcentrations of p-aminobenzoic acid. The absence ofurobilinogen cannot be determined with this test. URINE NITRITE NEGATIVE (NEGATIVE) URINE BLOOD 1+ (NEGATIVE) URINE LEUK ESTERASE NEGATIVE (NEGATIVE) URINE RBC 3-5 rbc/hpf (0-1) URINE WBC 0-1 wbc/hpf (0-1) URINE EPITHELIAL CELLS 0-1 EPI/hpf (0-5) URINE BACTERIA NONE SEEN (NONE SEEN) URINE COMMENT CULT NOT INDICATED 1+ MUCOUSFEW SPERM CELLSURINE CULTURES ARE SET-UP BASED ON THE FOLLOWING CRITERIA:POSITIVE NITRITEPOSITIVE LEUKOCYTE ESTERASEGREATER THAN 10 WHITE BLOOD CELLSMODERATE (2+) OR GREATER BACTERIA CBC w Diff: (LOW: 12/13/2016 02:05) ( [facility] 12/13/2016 02:54) Final results Test Result Flag Units (Reference) WHITE BLOOD COUNT 7.7 K/uL (4.5-11.5) RED BLOOD COUNT 4.05 L M/uL (4.50-5.90) HEMOGLOBIN 12.1 L gm/dL (13.5-17.5) HEMATOCRIT 36.3 L % (41.0-53.0) MEAN CELL VOLUME 90 fL (80-100) MEAN CORPUSCULAR HGB 30 pg (26-34) MEAN CORPUSCULAR HGB CONC 33 g/dL (31-37) RED CELL DISTRIBUTION WIDTH 14.3 % (11.6-14.8) PLATELET COUNT 316 K/uL (150-400) NEUTROPHIL % 72.2 % (50-75) LYMPH % 19.0 L % (25-40) MONO % 5.4 % (3-14) EOSINOPHIL % 3.1 % (0-4) BASOPHIL % 0.3 % (0-2) CMP: (LOW: 12/13/2016 02:05) ( MsgRcvd 12/13/2016 02:52) Final results Test Result Flag Units (Reference) GLUCOSE 85 mg/dL (70-110) BUN 15 mg/dL (7-18) CREATININE 0.9 mg/dL (0.6-1.3) Estimated GFR >60 mL/min Estimated GFR- >60 mL/min Note: Persistent reduction over 3 months in eGFR<60 mL/min/1.73 m2 defines CKD. Patients with eGFR values>=60 mL/min/1.73 m2 may also have CKD if evidence ofpersistent proteinuria. Additional information may be foundat www.kidney.org. SODIUM 141 mmol/L (136-145) POTASSIUM 4.0 mmol/L (3.5-5.1) CHLORIDE 104 mmol/L (98-107) CARBON DIOXIDE 28 mmol/L (21-32) CALCIUM 9.0 mg/dL (8.5-10.1) TOTAL PROTEIN 8.3 H g/dL (6.4-8.2) ALBUMIN 3.1 L g/dL (3.3-5.0) BILIRUBIN, TOTAL 0.8 mg/dL (0.0-1.0) ALKALINE PHOSPHATASE 125 H U/L (46-116) AST (SGOT) 57 H U/L (15-37) ALT (SGPT) 50 U/L (12-78) . Pulse Oximetry: 12/13/2016 01:42 O2 saturation: 98%. (FIO2 - room air). Interpretation: normal. PROGRESS AND PROCEDURES Course of Care: PT was given an liter of NS and Zofran, with improvement in sx. He was worked up with labs and a UA, which were unremarkable. Patient counseled in person regarding the patient's stable condition, test results, diagnosis and need for follow-up. Concerns were addressed. Old medical records reviewed. Disposition: Discharged. Condition: stable and improved. CLINICAL IMPRESSION Acute viral gastroenteritis. INSTRUCTIONS Drink plenty of fluids. Warnings: GENERAL WARNINGS: Return or contact your physician immediately if your condition worsens or changes unexpectedly, if not improving as expected, or if other problems arise. Your Current Medications: CONTINUE TAKING THE FOLLOWING MEDICATIONS: Ibuprofen Oral. Lisinopril Oral. Prescription Medications: Zofran (orally disintegrating tablets) 4 mg: take 1 orally every 8 hours as needed for nausea. Dispense ten (10). No refill. Substitution is permissible. Follow-up: Follow up with your doctor as needed. Understanding of the discharge instructions verbalized by patient. (Electronically signed by Sabrina Ha MD 12/22/2016 19:00)
--- NOTE | 2016-12-22 19:00 | ED DISCHARGE INSTRUCTIONS ---
Patient: MELINA MCKEON General Instructions [facility] VisitID: [id number] [place] [address] 51y, M Registration Date/Time: 12/13/2016 Acute viral gastroenteritis. INSTRUCTIONS Drink plenty of fluids. Warnings: GENERAL WARNINGS: Return or contact your physician immediately if your condition worsens or changes unexpectedly, if not improving as expected, or if other problems arise. Your Current Medications: CONTINUE TAKING THE FOLLOWING MEDICATIONS: Ibuprofen Oral. Lisinopril Oral. Prescription Medications: Zofran (orally disintegrating tablets) 4 mg: take 1 orally every 8 hours as needed for nausea. Dispense ten (10). No refill. Substitution is permissible. Follow-up: Follow up with your doctor as needed. Understanding of the discharge instructions verbalized by patient. ADDITIONAL INFORMATION Viral Gastroenteritis (6Yr-Adult) Gastroenteritis is another name for thestomach flu.It is most often caused by a virus that affects the stomach and intestinal tract. Symptoms include stomach cramping and fever, vomiting and/or diarrhea, and can last from 2 to 7 days. The danger from repeated vomiting or diarrhea is dehydration. This is the loss of too much water and minerals from the body. When this occurs, body fluids must be replaced. Antibiotics are not effective for this illness, but simple home treatment will be helpful. Home Care If symptoms are severe, rest at home for the next 24 hours. Avoid tobacco, caffeine, and alcohol use, which can worsen symptoms. Acetaminophen (Tylenol) or ibuprofen (Motrin, Advil) may be usedfor fever or pain unless another medication was prescribed. NOTE: If you have chronic liver or kidney disease or ever had a stomach ulcer or GI bleeding, talk with your doctor before using these medicines. Aspirin should never be used in anyone under 18 years of age who is ill with a fever. It may cause severe liver damage. If medicines for diarrhea or vomiting were prescribed, be sure they are takenonly as directed. If vomiting, drink small amounts of clear fluids (such as water, sports drinks, clear sodas) at frequent intervals to prevent dehydration. Start with 1 to 2 tablespoons every 10 minutes. Once vomiting stops, follow these guidelines: During The First 12 To 24 Hours follow the diet below: Beverages: Sport drinks like Gatorade, soft drinks without caffeine; loly silvina, mineral water (plain or flavored), decaffeinated tea and coffee. Soups: Clear broth, consomm and bouillon Desserts: Plain gelatin (Jell-O), Popsicles and fruit juice bars. During The Next 24 Hours you may add the following to the above: Hot cereal, plain toast, bread, rolls, crackers Plain noodles, rice, mashed potatoes, chicken noodle or rice soup Unsweetened canned fruit (avoid pineapple), bananas Limit fat intake to less than 15 grams per day by avoiding margarine, butter, oils, mayonnaise, sauces, gravies, fried foods, peanut butter, meat, poultry, and fish. Limit fiber; avoid raw or cooked vegetables, fresh fruits (except bananas), and bran cereals. Limit caffeine and chocolate. Do not use spices or seasonings except salt. During The Next 24 Hours The patient can gradually resume a normal diet as symptoms lessen. Preventing Spread Hand washing with soap and water is the best way to prevent the spread of viruses. Caregivers should wash their hands before andafter touching the sick person. The sick person, as well as everyone in the family,should wash their hands after using the toilet and before meals. Clean the toilet after each use. People with diarrhea should not prepare food for others. If you are preparing your own foods, wash your hands before and after. Follow Up with your doctor as advised. Call your doctor if you are not improving over the next 2 to 3 days. If a stool (diarrhea) sample was taken, you may call in 2 days (or as directed) for the results. Get Prompt Medical Attention if any of the following occur: Increasing abdominal pain Continued vomiting (unable to keep liquids down) Frequent diarrhea (more than 5 times a day) Blood in vomit or stool (black or red color) Dark urine, reduced urine output, or extreme thirst Weakness, dizziness, fainting Drowsiness, confusion, stiff neck, or seizure Fever of 100.4F (38C) oral or higher, not better with fever medication New rash You have been given the following additional information: Gastroenteritis, Viral (6Y-Adult) (Electronically signed by Sabrina Ha MD 12/22/2016 19:00)
--- NOTE | 2016-12-22 19:01 | ED MAR SUMMARY ---
..... Medication Administration Record [facility] [address] [place] [address] Patient: MELINA MCKEON Visit ID: [id number] 51y, M Weight: 90.7 kg Height/Length: 68 in BMI: 30.4 ALLERGIES: No Known Drug Allergy Start 02:33 12/13/2016 Ray Oglesby RAdrienneN., Stop 03:29 12/13/2016 Ray Oglesby R.N. Medication Administered: IV NS (SALINE), Dose: IV Fluids over 1 hour(s), Rate: 1000 mL/hr, Dispensed: 1000 mL bag, Site: #1 left AC. Medication Ordered: IV NS : initial bolus 1000 mL (1000 mL/hr), then none - (NOW). Given 02:59 12/13/2016 Tommy Mix RAdrienneNAdrienne Medication Administered: ONDANSETRON [IVP] (ONDANSETRON HCL), Dose: 4 mg IVP over 2 minute(s), Site: #1 left AC. Medication Ordered: Ondansetron IV 4 mg (NOW).
--- NOTE | 2016-12-22 19:01 | ED MAR SUMMARY ---
..... Medication Administration Record [facility] [address] [place] [address] Patient: MELINA MCKEON Visit ID: [id number] 51y, M Weight: 90.7 kg Height/Length: 68 in BMI: 30.4 ALLERGIES: No Known Drug Allergy Start 02:33 12/13/2016 Ray Oglesby RAdrienneN., Stop 03:29 12/13/2016 Ray Oglesby R.N. Medication Administered: IV NS (SALINE), Dose: IV Fluids over 1 hour(s), Rate: 1000 mL/hr, Dispensed: 1000 mL bag, Site: #1 left AC. Medication Ordered: IV NS : initial bolus 1000 mL (1000 mL/hr), then none - (NOW). Given 02:59 12/13/2016 Tommy Mix RAdrienneNAdrienne Medication Administered: ONDANSETRON [IVP] (ONDANSETRON HCL), Dose: 4 mg IVP over 2 minute(s), Site: #1 left AC. Medication Ordered: Ondansetron IV 4 mg (NOW).
--- NOTE | 2016-12-22 19:01 | ED MED RECONCILIATION SUMMARY ---
Patient: MELINA MKCEON Medication Reconciliation Report [facility] VisitID: [id number] [address] [place] [address] 51y, M Registration Date/Time: 12/13/2016 Weight: 90.7 kg Height/Length: 68 in. BMI: 30.4 ALLERGIES: No Known Drug Allergy The patient's Home Medications are listed below: CONTINUE TAKING THE FOLLOWING MEDICATIONS: Ibuprofen Oral Lisinopril Oral The source(s) of the original Home Medication information: Not obtained. The following Medications were given to the patient in the Emergency Department: IV NS IV Fluids bolus 0, then 1000 mL/hr, administered: 12/13/2016 2:33:00 AM Ondansetron [IVP] IVP 4 mg, administered: 12/13/2016 2:59:00 AM The following Medications were prescribed to the patient: Zofran (orally disintegrating tablets) 4 mg: take 1 orally every 8 hours as needed for nausea. Dispense ten (10). No refill. Substitution is permissible. -- Sabrina Ha MD
--- NOTE | 2016-12-22 19:01 | ED MED RECONCILIATION SUMMARY ---
Patient: MELINA MCKEON Medication Reconciliation Report [facility] VisitID: [id number] [address] [place] [address] 51y, M Registration Date/Time: 12/13/2016 Weight: 90.7 kg Height/Length: 68 in. BMI: 30.4 ALLERGIES: No Known Drug Allergy The patient's Home Medications are listed below: CONTINUE TAKING THE FOLLOWING MEDICATIONS: Ibuprofen Oral Lisinopril Oral The source(s) of the original Home Medication information: Not obtained. The following Medications were given to the patient in the Emergency Department: IV NS IV Fluids bolus 0, then 1000 mL/hr, administered: 12/13/2016 2:33:00 AM Ondansetron [IVP] IVP 4 mg, administered: 12/13/2016 2:59:00 AM The following Medications were prescribed to the patient: Zofran (orally disintegrating tablets) 4 mg: take 1 orally every 8 hours as needed for nausea. Dispense ten (10). No refill. Substitution is permissible. -- Sabrina Ha MD
== END 2016-12-13 03:27 | disposition home or self-care (01) ==
LOC: ED SRH 01:31
DX: A08.4 Viral intestinal infection, unspecified (principal); I10 Essential (primary) hypertension; Z79.899 Other long term (current) drug therapy
CPT/HCPCS: 90004; 90100; 95059